=== PATIENT | female | born 1970 | race Caucasian/White ===

== ENCOUNTER 2017-02-23 19:11 | Emergency (ER) | payer OTHER ==
[2017-02-23 19:31] VITALS: BP 111/82
== END 2017-02-23 21:12 | disposition left against medical advice (07) ==
LOC: ED 19:11
DX: Z53.21 Procedure and treatment not carried out due to patient leaving prior to being seen by health care provider (principal)

== ENCOUNTER 2017-02-23 22:54 | Emergency (ER) | payer OTHER ==
[2017-02-24 02:45] VITALS: BP 131/90
== END 2017-02-24 02:45 | disposition home or self-care (01) ==
LOC: ED 22:54
DX: F29 Unspecified psychosis not due to a substance or known physiological condition (principal); I10 Essential (primary) hypertension; Z86.711 Personal history of pulmonary embolism